=== PATIENT | female | born 1940 | race Caucasian/White ===

== ENCOUNTER 2020-11-03 10:06 | Outpatient (REF) | payer MEDICARE, SELFPAY ==
[2020-11-03 13:05] LABS: Anion Gap 14 (12-20); Blood Urea Nitrogen 19 mg/dL (9-16); Calcium 9.2 mg/dL (8.4-10.2); Carbon Dioxide 27 mmol/L (22-29); Chloride 105 mmol/L (96-108); Estimated Glomerular Filt Rate > 60; Glucose Random 79 mg/dL (60-115); Potassium 3.4 mmol/l (3.3-5.1); Sodium 143 mmol/L (135-145)
== END 2020-11-03 10:07 | disposition home or self-care (01) ==
LOC: HO.MANLDS 10:06
PROVIDERS: PCP Internal Medicine; Visit Provider Physician Assistant
DX: I10 Essential (primary) hypertension (principal)
CPT/HCPCS: 36415; 80048